=== PATIENT | male | born 1960 | race Hispanic/Latino ===

== ENCOUNTER 2017-03-18 21:50 | Emergency (ER) | payer MEDICAID ==
--- NOTE | 2017-03-18 22:30 | Emergency Department Report ---
HPI - General Time Seen by Provider: 03/18/17 22:01 - HPI HPI: Room 10 The patient is a 56-year-old male presenting with a chief complaint of combative behavior. Patient was sent from [facility] after reports of being combative and agitated. Case discussed with [facility] nurse who states during the day shift patient was reportedly very agitated and cursing at staff kicking the door and picking fights. The nurse states the marriage and family social worker wanted the patient sent out for evaluation. The evening shift nurse states the patient was calm and collected at the time of transfer. Patient is calm and collected in the ED and denies complaints Location: Mental state Duration: [see above] Quality: Combative Severity: Moderate Modifying factors: [see above] Context: [see above] Mode of transportation: [not driving] ED Past Medical Hx - Past Medical History Hx Hypertension: Yes Hx CVA: Yes Hx GERD: Yes Hx Seizures: Yes Hx Psychiatric Treatment: Yes (bipolar) Hx Dementia: Yes (alzheimers) - Surgical History Additional Surgical History: knee surgery - Family History Family history: no significant - Social History Smoking Status: Current Every Day Smoker Substance Use Type: Alcohol, Marijuana - Medications Home Medications: Home Medications Medication Instructions Recorded Confirmed Last Taken Type Clotrimazole/Betamethasone Dip 15 gm TP BID #1 cream..g. 07/23/13 Unknown Rx [Lotrisone Cream] Aspirin [Baby Aspirin] 81 mg PO ONCE 08/02/13 08/02/13 Unknown History Ciprofloxacin HCl [Cipro] 500 mg PO 08/02/13 08/02/13 Unknown History Citalopram [Celexa] 20 mg PO QDAY 08/02/13 08/02/13 Unknown History Clopidogrel Bisulfate [Plavix] 75 mg PO 08/02/13 08/02/13 Unknown History Donepezil [Aricept] 10 mg PO QDAY 08/02/13 08/02/13 Unknown History LORazepam [Ativan] 1 mg PO QHS 08/02/13 08/02/13 Unknown History Metoprolol [Lopressor TAB] 08/02/13 08/02/13 Unknown History OXcarbazepine [Trileptal] 300 mg PO BID 08/02/13 08/02/13 Unknown History Pyridoxine HCl [Vitamin B-6] 25 mg PO QDAY 08/02/13 08/02/13 Unknown History QUEtiapine [SEROquel] 300 mg PO 08/02/13 08/02/13 Unknown History Rifampin [Rifadin] 300 mg PO BID 08/02/13 08/02/13 Unknown History Simvastatin [Zocor] 20 mg PO QHS 08/02/13 08/02/13 Unknown History levETIRAcetam [Keppra] 500 mg PO BID 08/02/13 08/02/13 Unknown History Levofloxacin [Levaquin TAB] 500 mg PO QDAY #10 tablet 03/19/17 Unknown Rx ED Review of Systems ROS: Stated complaint: AGITATED, COMBATIVE Other details as noted in HPI Comment: All other systems reviewed and negative Constitutional: denies: chills, fever Eyes: denies: eye pain, eye discharge, vision change ENT: denies: ear pain, throat pain Respiratory: denies: cough, shortness of breath, wheezing Cardiovascular: denies: chest pain, palpitations Endocrine: no symptoms reported Gastrointestinal: denies: abdominal pain, nausea, diarrhea Genitourinary: denies: urgency, dysuria Musculoskeletal: denies: back pain, joint swelling, arthralgia Skin: lesions Neurological: denies: headache, weakness, paresthesias Psychiatric: other (history of combativeness) Hematological/Lymphatic: denies: easy bleeding, easy bruising Physical Exam - Physical Exam Physical Exam: GENERAL: The patient is well-developed well-nourished male lying on stretcher not appearing to be in acute distress. [] HEENT: Patient has irregularly shaped fungating mass growing from skin of the left frontal scalp. Atraumatic. Extraocular motions are intact. Patient has moist mucous membranes. NECK: Supple. No meningitic signs are noted. There is no adenopathy noted. CHEST/LUNGS: Clear to auscultation. There is no respiratory distress noted. HEART/CARDIOVASCULAR: Regular. There is no tachycardia. There is no gallop rub or murmur. ABDOMEN: Abdomen is soft, nontender. Patient has normal bowel sounds. There is no abdominal distention. SKIN: There is no rash. There is no edema. There is no diaphoresis. NEURO: The patient is awake and alert. The patient is cooperative. The patient has left lower weakness from previous CVA. The patient has normal speech. Cranial nerves II through XII grossly intact except cranial nerve XI on the left MUSCULOSKELETAL: There is no evidence of acute injury. ED Course - Consultations Consultation #1: 03/18/17 22:30 [facility] called 03/19/17 01:19 Case discussed with etl consultant Dom-patient does not meet inpatient criteria. Patient is currently calm. May be sent back to [facility] ED Medical Decision Making - Lab Data Result diagrams: 03/18/17 23:53 03/18/17 23:53 Laboratory Tests 03/18/17 03/18/17 03/18/17 23:05 23:05 23:53 WBC 9.9 RBC 4.40 Hgb 13.6 Hct 41.8 MCV 95 H MCH 31 MCHC 33 RDW 14.2 Plt Count 252 Lymph % (Auto) 32.7 Wirt % (Auto) 7.9 H Eos % (Auto) 7.3 H Baso % (Auto) 1.0 Lymph # 3.2 Wirt # 0.8 Eos # 0.7 H Baso # 0.1 Seg Neutrophils % 51.1 Seg Neutrophils # 5.1 Sodium Potassium Chloride Carbon Dioxide Anion Gap BUN Creatinine Estimated GFR BUN/Creatinine Ratio Glucose Calcium Urine Color Yellow Urine Turbidity Slightly-cloudy Urine pH 5.0 Ur Specific [place] 1.017 Urine Protein 100 mg/dl Urine Glucose (UA) Neg Urine Ketones Neg Urine Blood Neg Urine Nitrite Neg Urine Bilirubin Neg Urine Urobilinogen 2.0 Ur Leukocyte Esterase Lg Urine WBC (Auto) > 182.0 H Urine RBC (Auto) 11.0 U Epithel Cells (Auto) < 1.0 Urine Mucus Few Urine Opiates Screen Presumptive negative Urine Methadone Screen Presumptive negative Ur Barbiturates Screen Presumptive positive Ur Phencyclidine Scrn Presumptive negative Ur Amphetamines Screen Presumptive negative U Benzodiazepines Scrn Presumptive negative Urine Cocaine Screen Presumptive negative U Marijuana (THC) Screen Presumptive negative Drugs of Abuse Note Disclamer Plasma/Serum Alcohol 03/18/17 03/18/17 23:53 23:53 WBC RBC Hgb Hct MCV MCH MCHC RDW Plt Count Lymph % (Auto) Wirt % (Auto) Eos % (Auto) Baso % (Auto) Lymph # Wirt # Eos # Baso # Seg Neutrophils % Seg Neutrophils # Sodium 138 Potassium 3.8 Chloride 102.3 Carbon Dioxide 20 L Anion Gap 20 BUN 12 Creatinine 1.0 Estimated GFR > 60 BUN/Creatinine Ratio 12.00 Glucose 108 H Calcium 9.1 Urine Color Urine Turbidity Urine pH Ur Specific [place] Urine Protein Urine Glucose (UA) Urine Ketones Urine Blood Urine Nitrite Urine Bilirubin Urine Urobilinogen Ur Leukocyte Esterase Urine WBC (Auto) Urine RBC (Auto) U Epithel Cells (Auto) Urine Mucus Urine Opiates Screen Urine Methadone Screen Ur Barbiturates Screen Ur Phencyclidine Scrn Ur Amphetamines Screen U Benzodiazepines Scrn Urine Cocaine Screen U Marijuana (THC) Screen Drugs of Abuse Note Plasma/Serum Alcohol < 0.01 - Differential Diagnosis dementia, skin CA, Critical care attestation.: If time is entered above; I have spent that time in minutes in the direct care of this critically ill patient, excluding procedure time. ED Disposition Clinical Impression: Dementia, UTI (urinary tract infection), Scalp lesion Disposition: TO HOME OR SELFCARE Is pt being admited?: No Does the pt Need Aspirin: No Condition: Stable Instructions: Urinary Tract Infection in Men (ED) Additional Instructions: Return to the emergency department immediately should you develop worsening symptoms, fever, inability to tolerate food or liquid or any other concerns. Prescriptions: Levofloxacin [Levaquin TAB] 500 mg PO QDAY #10 tablet Referrals: VENKATESH GRIDER MD [Staff Physician] - 3-5 Days (Dr. Grider is a [employer] engineer. Please follow with him for further evaluation of your scalp lesion) Time of Disposition: 01:20
[2017-03-18 23:09] LABS: Urine Drugs of Abuse Note Disclamer
[2017-03-18 23:18] LABS: Bilirubin,Urine NEG (Negative); Blood,Urine NEG (Negative); Ketones,Urine NEG (Negative); Leukocyte Esterase,Urine LG (Negative); Mucus,Urine FEW /HPF; Nitrite,Urine NEG (Negative)
[2017-03-18 23:19] LABS: WBC,Urine > 182.0 /HPF (0.0-6.0)
[2017-03-19 00:38] LABS: Anion Gap 20 mmol/L; Blood Urea Nitrogen 12 mg/dL (9-20); Calcium 9.1 mg/dL (8.4-10.2); Carbon Dioxide 20 mmol/L (22-30); Chloride 102.3 mmol/L (98-107); Glucose 108 mg/dL (75-100); Potassium 3.8 mmol/L (3.6-5.0); Sodium 138 mmol/L (137-145)
[2017-03-19 00:48] LABS: Eosinophils % (Auto) 7.3 % (0.0-4.3); Hematocrit 41.8 % (35.5-45.6); Hemoglobin 13.6 gm/dl (11.8-15.2); Mean Corpuscular HGB Conc 33 % (32-34); Mean Corpuscular Hemoglobin 31 pg (28-32); Mean Corpuscular Volume 95 fl (84-94); Platelet Count 252 K/mm3 (140-440); Red Cell Distribution Width 14.2 % (13.2-15.2); White Blood Count 9.9 K/mm3 (4.5-11.0)
[2017-03-19] MEDS ORDERED: LEVAQUIN PO ONE (01:19)
[2017-03-19 09:12] VITALS: BP 130/74
== END 2017-03-19 11:48 | disposition home or self-care (01) ==
LOC: EEVIPCON 21:50 → ED 21:50
DX: G30.9 Alzheimer's disease, unspecified (principal); F02.80 Dementia in other diseases classified elsewhere, unspecified severity, without behavioral disturbance, psychotic disturbance, mood disturbance, and anxiety; N39.0 Urinary tract infection, site not specified; L98.9 Disorder of the skin and subcutaneous tissue, unspecified; I10 Essential (primary) hypertension; F31.9 Bipolar disorder, unspecified; F17.210 Nicotine dependence, cigarettes, uncomplicated; F12.10 Cannabis abuse, uncomplicated; Z86.73 Personal history of transient ischemic attack (TIA), and cerebral infarction without residual deficits; Z79.02 Long term (current) use of antithrombotics/antiplatelets; Z79.82 Long term (current) use of aspirin
CPT/HCPCS: 36415; 80048; 80307; 81001; 85025; 87076; 87086; 87186; 99284; G0480; 80320